=== PATIENT | male | born 1955 | race Caucasian/White ===

== ENCOUNTER 2019-08-31 01:16 | Emergency (ER) | payer BC, OTHER ==
[~2019-08-31] VITALS: Ht 188 cm; Wt 122.7 kg
[2019-08-31 01:54] LABS: BASO # 0.1 x10^3/uL (0.0-0.2); BASO % 1 % (0-3); EOS # 0.4 x10^3/uL (0.0-0.7); EOS % 3 % (0-3); HEMATOCRIT 46.3 % (39.0-53.0); HEMOGLOBIN 15.5 g/dL (13.0-17.5); LYMPH # 3.3 x10^3/uL (1.0-4.8); LYMPH % 31 % (24-48); MEAN CORPUSCULAR HEMOGLOBIN 29 pg (25-35); MEAN CORPUSCULAR HGB CONC 34 g/dL (31-37); MEAN CORPUSCULAR VOLUME 86 fL (79-100); MONO # 0.9 x10^3/uL (0.0-1.1); MONO % 9 % (0-9); NEUT % 56 % (31-73); PLATELET COUNT 241 x10^3/uL (140-400); RED BLOOD COUNT 5.36 x10^6/uL (4.30-5.70); RED CELL DISTRIBUTION WIDTH 15.3 % (11.5-14.5); WHITE BLOOD COUNT 10.7 x10^3/uL (4.0-11.0)
[2019-08-31 01:58] LABS: CREATININE 1.1 mg/dL (0.7-1.3); GFR 67.4
--- NOTE | 2019-08-31 01:58 | PHYS DOC ---
Past History Past Medical History: CAD, Diabetes, High Cholesterol, Hypothyroid, Other Additional Past Medical Histor: low back pain, rt hernia Past Surgical History: Other Additional Past Surgical Histo: cervical spine fusion c2-c7, spinal stimulators x 2 Smoking: Non-smoker Alcohol Use: Occasionally Drug Use: None General Adult EDM: Chief Complaint: DIZZY/LIGHT HEADED HPI: HPI: 63-year-old male presents with report of "my world is spinning "that is been ongoing for the past 4 days. Denies any fever or chills. Denies trauma. Patient does report some chest "tightness ". Patient reports concern that his O2 sat had dropped into the high 80%s while at home. Patient does report history of vertigo. Reports has not been prescribed any medication in the past. Patient reports symptoms have been worsening. Reports his spouse therefore had patient come to the emergency department for further evaluation. Review of Systems: Review of Systems: Constitutional: Denies fever or chills Eyes: Denies redness or eye pain HENT: Denies nasal congestion or sore throat Respiratory: Denies cough or shortness of breath Cardiovascular: Reports chest "tightness "; denies palpitations GI: Denies abdominal pain, nausea, or vomiting : Denies dysuria or hematuria Musculoskeletal: Denies back pain or joint pain Integument: Denies rash or skin lesions Neurologic: Denies headache, focal weakness or sensory changes; reports room spinning sensation Complete systems were reviewed and found to be within normal limits, except as documented in this note. Heart Score: HEART Score for Chest Pain: HEART Score for Chest Pain Response (Comments) Value History Slighlty/Non-Suspicious 0 ECG Normal 0 Age >45 - < 65 1 Risk Factors >3 Risk Factors or Hx CAD 2 Troponin < Normal Limit 0 Total 3 Risk Factors: Risk Factors: DM, Current or recent (<one month) smoker, HTN, HLP, family history of CAD, obesity. Risk Scores: Score 0 - 3: 2.5% MACE over next 6 weeks - Discharge Home Score 4 - 6: 20.3% MACE over next 6 weeks - Admit for Clinical Observation Score 7 - 10: 72.7% MACE over next 6 weeks - Early Invasive Strategies Current Medications: Current Meds: Current Medications Medications (Trade) Dose Ordered Sig/Craig Start Time Stop Time Status Last Admin Dose Admin Meclizine HCl (Antivert) 25 mg 1X ONCE 6/25/20 01:45 08/31/19 01:46 UNV Sodium Chloride 1,000 ml @ 1,000 mls/hr 1X ONCE 08/31/19 01:45 08/31/19 02:44 UNV Allergies: Allergies: Allergies Coded Allergies Type Severity Reaction Last Updated Verified No Known Drug Allergies 08/31/19 No Physical Exam: PE: Constitutional: Well developed, well nourished, no acute distress, non-toxic appearance, obese HENT: Normocephalic, atraumatic, TMs clear bilaterally Eyes: PERRL, EOMI, conjunctiva normal, no discharge, no nystagmus Neck: Normal range of motion, no tenderness, supple Lungs & Thorax: No respiratory distress, equal chest rise and fall Abdomen: Soft, no tenderness Skin: Warm, dry, no erythema, no rash Back: No tenderness, no CVA tenderness Extremities: No tenderness, ROM intact, 1+ bilateral lower extremity edema Neurologic: Alert and oriented X 3, normal motor function, normal sensory function, no focal deficits noted, cerebellar function intact Psychologic: Affect normal, judgment normal Current Patient Data: Labs: Laboratory Tests Test 08/31/19 01:28 Glucose (Fingerstick) 123 mg/dL (70-99) H Vital Signs: Vital Signs Date Time Temp Pulse Resp B/P (MAP) Pulse Ox O2 Delivery O2 Flow Rate FiO2 08/31/19 01:16 98.2 65 58 164/69 (100) 93 Room Air EKG: EKG: @0121 NSR at 65bpm, NO ST elevation, QRS 104ms, QT/QTc 412/434ms Radiology/Procedures: Radiology/Procedures: PROCEDURE: CT HEAD WO CONTRAST CT HEAD INDICATION: Dizziness COMPARISON: None Available. Exposure: One or more of the following individualized dose reduction techniques were utilized for this examination: 1. Automated exposure control 2. Adjustment of the mA and/or kV according to patient size 3. Use of iterative reconstruction technique TECHNIQUE: 5 mm contiguous axial images were obtained from the skull base to the vertex in both bone and soft tissue algorithm. FINDINGS: Mild bilateral periventricular white matter hypodensities likely chronic small vessel ischemic disease. No evidence of acute intracranial hemorrhage. No extra-axial fluid collections. No mass effect or midline shift. Ventricular size is appropriate. Basal cisterns are patent. No fractures identified.Harrington-white differentiation is preserved.Globes and orbits are within normal limits. Paranasal sinuses and mastoid air cells are clear. IMPRESSION: No acute intracranial findings. Electronically signed by: Dalton Velarde MD (08/31/2019 2:23 AM) [id number] PROCEDURE: CHEST PA & LATERAL Chest, PA and Lateral: Technique: PA and lateral views of the chest were obtained. History: Dizziness. Comparison: 06/27/2009. Findings: The heart and pulmonary vasculature appear within normal limits. Mild bibasilar lung airspace opacities likely atelectasis or infiltrates.. The pleural margins are clear. Impression: Mild bibasilar lung airspace opacities likely atelectasis or infiltrates.. Electronically signed by: Dalton Velarde MD (08/31/2019 2:39 AM) [id number] Course & Med Decision Making: Course & Med Decision Making Pertinent Labs and Imaging studies reviewed. (See chart for details) Patient presents with HPI and physical exam concerning for vertigo. Patient neurologically intact. NIHSS 0. Patient also reports some chest discomfort. EKG stable. Labs obtained and posted to chart. Troponin within normal limits. CT head without acute process. Symptomatic treatment provided with interval improvement of symptoms. Patient stable for discharge with outpatient follow-up with PCP. Discussed findings and plan with patient, who acknowledges understanding and agreement. Flori Disclaimer: Flori Disclaimer: This electronic medical record was generated, in whole or in part, using a voice recognition dictation system. Departure Departure: Impression: Primary Impression: Vertigo Disposition: 01 HOME/RESIDENCE PRIOR TO ADM Condition: STABLE Referrals: ALY MARS MD (PCP) Patient Instructions: Vertigo, [id number] Scripts Meclizine Hcl (MECLIZINE HCL) 25 Mg Tablet 1 TAB PO PRN TID PRN for DIZZINESS, #20 TAB Prov: CHRISTINA MOLINA Lance DO 08/31/19 Justification of Admission: Justification of Admission: Justification of Admission Dx: N/A NIHSS - ED NIH Stroke Scale: NIH Stroke Scale Response (Comments) Value Level of Consciousness: 0 Alert/Responsive 0 LOC Questions: 0 Answers both correctly 0 LOC Commands: 0 Performs both tasks 0 Best Gaze: 0 Normal 0 Visual: 0 No visual loss 0 Facial Palsy: 0 Normal, symmetrical 0 Motor - Left Arm 0 No drift 0 Motor - Right Arm 0 No drift 0 Motor - Left Leg 0 No drift 0 Motor: Right Leg 0 No drift 0 Limb Ataxia: 0 Absent 0 Sensory: 0 No loss 0 Best Language: 0 Normal 0 Dysathria: 0 Normal 0 Extinction and Inattention: 0 Normal 0 Total 0 MOLINA,CHRISTINA Baugh 25, 2020 01:58
[2019-08-31] MEDS ORDERED: MECLIZINE 12.5 MG TABLET. PO ONE (02:00)
[2019-08-31] MEDS ORDERED: IV NORMAL SALINE 1,000ML 1,000 ML IV ONE (02:00)
[2019-08-31 02:04] LABS: ALBUMIN 3.7 g/dL (3.4-5.0); TOTAL BILIRUBIN 0.4 mg/dL (0.2-1.0); TOTAL PROTEIN 7.4 g/dL (6.4-8.2)
[2019-08-31 02:26] LABS: MAGNESIUM 2.2 mg/dL (1.8-2.4)
--- NOTE | 2019-08-31 02:26 | RAD ---
CT HEAD INDICATION: Dizziness COMPARISON: None Available. Exposure: One or more of the following individualized dose reduction techniques were utilized for this examination: 1. Automated exposure control 2. Adjustment of the mA and/or kV according to patient size 3. Use of iterative reconstruction technique TECHNIQUE: 5 mm contiguous axial images were obtained from the skull base to the vertex in both bone and soft tissue algorithm. FINDINGS: Mild bilateral periventricular white matter hypodensities likely chronic small vessel ischemic disease. No evidence of acute intracranial hemorrhage. No extra-axial fluid collections. No mass effect or midline shift. Ventricular size is appropriate. Basal cisterns are patent. No fractures identified.Harrington-white differentiation is preserved.Globes and orbits are within normal limits. Paranasal sinuses and mastoid air cells are clear. IMPRESSION: No acute intracranial findings. Electronically signed by: Dalton Velarde MD (08/31/2019 2:23 AM) [id number]
--- NOTE | 2019-08-31 02:42 | RAD ---
Chest, PA and Lateral: Technique: PA and lateral views of the chest were obtained. History: Dizziness. Comparison: 06/27/2009. Findings: The heart and pulmonary vasculature appear within normal limits. Mild bibasilar lung airspace opacities likely atelectasis or infiltrates.. The pleural margins are clear. Impression: Mild bibasilar lung airspace opacities likely atelectasis or infiltrates.. Electronically signed by: Dalton Velarde MD (08/31/2019 2:39 AM) [id number]
[2019-08-31] MEDS ORDERED: MECL-75 PO (03:10)
[2019-08-31 03:25] VITALS: BP 147/86
--- NOTE | 2019-08-31 14:47 | EKG ---
[address] [address] Test Date: 2019-08-31 Test Time: 01:21:25 Pat Name: MARIO MASON Department: Room: Gender: M Grubber: : 1955 Requested By: CHRISTINA MOLINA Order Number: [id number] Reading MD: Measurements Intervals [place] Rate: 65 P: 5 OK: 208 QRS: 23 QRSD: 104 T: 26 QT: 412 QTc: 434 Interpretive Statements SINUS RHYTHM NO SPECIFIC ECG ABNORMALITIES RI6.02 No previous ECG available for comparison
== END 2019-08-31 03:13 | disposition home or self-care (01) ==
LOC: ER 01:16
DX: R42 Dizziness and giddiness (principal); R07.89 Other chest pain; E78.00 Pure hypercholesterolemia, unspecified; E11.9 Type 2 diabetes mellitus without complications; E03.9 Hypothyroidism, unspecified; I25.10 Atherosclerotic heart disease of native coronary artery without angina pectoris; Z98.890 Other specified postprocedural states
CPT/HCPCS: 36415; 70450; 71046; 80053; 82553; 82947; 83735; 83880; 84484; 85025; 85610; 85730; 93005; 96360; 99285; J7030; J8597

== ENCOUNTER 2020-04-04 14:39 | Emergency (ER) | payer MEDICARE, BC, OTHER ==
[~2020-04-04] VITALS: Ht 188 cm; Wt 122.7 kg
[~2020-04-04 14:39] MED LIST: MECL-75 PO
[2020-04-04] MEDS ORDERED: MORPHINE SULFATE 10 MG/ML SYRINGE. IM ONE (15:00)
--- NOTE | 2020-04-04 15:56 | RAD ---
EXAM: Head CT without contrast; cervical spine CT without contrast; lumbar spine CT without contrast. HISTORY: Fall. TECHNIQUE: Computed tomographic images of the head, cervical spine and lumbar spine were obtained wit hout contrast. *One or more of the following individualized dose reduction techniques were utilized for this examina tion: 1. Automated exposure control. 2. Adjustment of the mA and/or kV according to patient size. 3. Use of iterative reconstruction technique. COMPARISON: 06/05/2019. FINDINGS: Head: There is no acute intracranial hemorrhage. There is no mass effect or midline shift. There is n o hydrocephalus. There is cerebral volume loss. There are areas of decreased attenuation within the c erebral white matter, likely due to chronic small vessel disease. There is no calvarial lesion. There is evidence of lens surgery. There are tiny maxillary sinus mucous retention cyst. The mastoid air c ells are clear. There are maxillary antrostomy/uncinectomy changes. Cervical spine: There is instrumented anterior spinal fusion and interbody fusion at C5-C7. There is degenerative endplate remodeling with disc space narrowing and spurring primarily at C4-C5. There are dorsal column stimulator leads terminate within the dorsal aspect of the cervical central canal at C 3. There is multilevel facet arthropathy. At C2-C3, there is endplate remodeling. There is mild bilateral facet arthropathy. There is no stenos is. At C3-C4, there is a disc bulge and endplate remodeling. There is moderate right and mild left facet arthropathy. There is right greater than left uncovertebral arthropathy. There is moderate to severe right and mild left foraminal stenosis. At C4-C5, there is a right posterior lateral disc osteophyte complex superimposed on a disc bulge and endplate osteophytosis. There is mild bilateral facet arthropathy. There is bilateral uncovertebral therapy. There is mild left foraminal stenosis. At C5-C6, there is a disc bulge and endplate osteophytosis. There is uncovertebral arthropathy. There is moderate right and mild left foraminal stenosis. At C6-C7, there is a disc bulge and endplate osteophytosis. There is mild left facet arthropathy. The re is uncovertebral arthropathy. There is [id number] right and moderate to severe left foramina l stenosis. Lumbar spine: There is a transitional lumbosacral segment. This considered a partially sacralized L5 segment for this dictation. Based on this numbering system, there are hypoplastic T12 ribs. There is minimal lumbar scoliosis. There is lumbar hyperlordosis. There is grade 1 anterolisthesis of L4 on L5 , measuring 3 mm. There is grade 1 anterolisthesis of L5 on S1, measuring abdomen. Mild acute xiomara zach fracture of T12. There is multilevel endplate remodeling. There is a minimal chronic superior en dplate depression with Schmorl's node at L2. There is degenerative subchondral sclerosis and vacuum phenomenon involving the sacroiliac joints. Th ere are few benign bone islands. There are few osseous hemangiomas. At T12-L1, there is a disc bulge. There is mild right facet arthropathy. There is mild lateral forami nal stenosis. At L1-L2, there is a disc bulge and endplate remodeling. There is mild bilateral facet arthropathy. T here is mild bilateral foraminal stenosis. L2-L3, there is a disc bulge and endplate remodeling. There is mild bilateral facet arthropathy. Ther e is mild bilateral foraminal stenosis. At L3-L4, there is a disc bulge and endplate remodeling. There is mild bilateral facet arthropathy. T here is moderate right and mild left foraminal stenosis. At L4-L5, there is a disc bulge and endplate remodeling. There is severe bilateral facet arthropathy. There is grade 1 anterolisthesis. There is moderate bilateral foraminal stenosis. At L5-S1, there is a disc bulge and endplate osteophytosis. There is severe right greater than left f acet arthropathy. There is grade 1 anterolisthesis. There is severe right and mild left foraminal david nosis. There is mild central canal stenosis. IMPRESSION: 1. No acute intracranial finding. There are bilateral cerebral white matter changes due to chronic sm all vessel disease and there is cerebral volume loss. 2. No evidence of acute cervical spine trauma. There are degenerative changes throughout the cervical spine, resulting in stenosis as described above. There is also instrumented fusion at C5-C7. 3. Mild acute compression fracture of T12. This is based on a vertebral numbering system identifying a transitional lumbosacral segment as L5 rather than L6. 4. Multilevel degenerative change throughout the lumbar spine, resulting in stenosis as described abo ve. Electronically signed by: Aranza Tucker MD (04/04/2020 3:54 PM) [email or web address]
--- NOTE | 2020-04-04 16:16 | PHYS DOC ---
Past History Past Medical History: CAD, Diabetes, High Cholesterol, Hypothyroid, Other Additional Past Medical Histor: low back pain, rt hernia, neuropathy (MERARY KERR APRN) Past Surgical History: Other Additional Past Surgical Histo: cervical spine fusion c2-c7, spinal stimulators x 2 (MERARY KERR APRN) Smoking: Non-smoker Alcohol Use: Occasionally Drug Use: None (MERARY KERR APRN) General Adult EDM: Chief Complaint: MECHANICAL FALL HPI: HPI: Patient is a 64-year-old male, accompanied by his daughter, who presents to the emergency room for evaluation of low back pain and a possible loss of consciousness after suffering 2 falls today. Patient reports the first fall was down 4 steps at home. Patient is unsure why he fell he does report a history of neuropathy in both of his feet. Patient reports that later in the day he fell down the same steps but this time he fell down 5 steps, the patient's daughter reports that the patient seemed dazed and that there may have been a loss of consciousness less than a minute associated with the second fall. Patient reports that he had lumbar laminectomy and fusion a week and a half ago by Dr. Hoskins. He denies any decreased sensation, loss of bowel/bladder control, wea kness, or saddle anesthesia. He currently rates his pain a 10 out of 10 on the pain scale, he denies any alleviating factors. (MERARY KERR APRN) Review of Systems: Review of Systems: Complete ROS is negative unless otherwise noted in HPI. (MERARY KERR APRN) Current Medications: Current Meds: Current Medications Medications (Trade) Dose Ordered Sig/Craig Start Time Stop Time Status Last Admin Dose Admin Morphine Sulfate (Morphine 10mg Syringe) 6 mg 1X ONCE 04/04/20 15:00 04/04/20 15:08 DC (MERARY KERR APRN) Allergies: Allergies: Allergies Coded Allergies Type Severity Reaction Last Updated Verified No Known Drug Allergies 08/31/19 No (MERARY KERR APRN) Physical Exam: PE: See Above Constitutional: Well developed, well nourished, no acute distress, non-toxic appearance. [] HENT: Normocephalic, atraumatic, bilateral external ears normal, nose normal. [] Eyes: PERRLA, EOMI, conjunctiva normal, no discharge. [] Neck: Normal range of motion, supple, no bony tenderness, no obvious deformity, no step-off no stridor. [] Cardiovascular:Heart rate regular rhythm Lungs & Thorax: Respirations even and unlabored, no retractions, no respiratory distress Back: Lower thoracic spine tenderness to palpation without crepitus, step-off, or obvious deformity, diffuse lumbar tenderness to palpation with out crepitus, step-off, or obvious deformity Skin: Warm, dry, no erythema, no rash;healing lumbar incision surgical wound, Steri-Strips in place, no purulent drainage or bleeding, no warmth, [] Extremities: No cyanosis, ROM intact, no edema. [] Neurologic: Alert and oriented X 3, motor intact, decreased sensation of bilateral lower extremities history of neuropathy, no focal deficits noted. [] Psychologic: Affect normal, judgement normal, mood normal. [] (MERARY KERR APRN) Current Patient Data: Vital Signs: Vital Signs Date Time Temp Pulse Resp B/P (MAP) Pulse Ox O2 Delivery O2 Flow Rate FiO2 04/04/20 14:45 98.1 78 16 143/67 (92) 96 Room Air (MERARY KERR APRN) EKG: EKG: [] (MERARY KERR APRN) Radiology/Procedures: Radiology/Procedures: PROCEDURE: CT LUMBAR SPINE WO CONTRAST EXAM: Head CT without contrast; cervical spine CT without contrast; lumbar spine CT without contrast. HISTORY: Fall. TECHNIQUE: Computed tomographic images of the head, cervical spine and lumbar spine were obtained without contrast. *One or more of the following individualized dose reduction techniques were utilized for this examination: 1. Automated exposure control. 2. Adjustment of the mA and/or kV according to patient size. 3. Use of iterative reconstruction technique. COMPARISON: 06/05/2019. FINDINGS: Head: There is no acute intracranial hemorrhage. There is no mass effect or midline shift. There is no hydrocephalus. There is cerebral volume loss. There are areas of decreased attenuation within the cerebral white matter, likely due to chronic small vessel disease. There is no calvarial lesion. There is evidence of lens surgery. There are tiny maxillary sinus mucous retention cyst. The mastoid air cells are clear. There are maxillary antrostomy/uncinectomy changes. Cervical spine: There is instrumented anterior spinal fusion and interbody fusion at C5-C7. There is degenerative endplate remodeling with disc space narrowing and spurring primarily at C4-C5. There are dorsal column stimulator leads terminate within the dorsal aspect of the cervical central canal at C3. There is multilevel facet arthropathy. At C2-C3, there is endplate remodeling. There is mild bilateral facet arthropathy. There is no stenosis. At C3-C4, there is a disc bulge and endplate remodeling. There is moderate right and mild left facet arthropathy. There is right greater than left uncovertebral arthropathy. There is moderate to severe right and mild left foraminal stenosis. At C4-C5, there is a right posterior lateral disc osteophyte complex superimposed on a disc bulge and endplate osteophytosis. There is mild bilateral facet arthropathy. There is bilateral uncovertebral therapy. There is mild left foraminal stenosis. At C5-C6, there is a disc bulge and endplate osteophytosis. There is uncovertebral arthropathy. There is moderate right and mild left foraminal stenosis. At C6-C7, there is a disc bulge and endplate osteophytosis. There is mild left facet arthropathy. There is uncovertebral arthropathy. There is [id number] right and moderate to severe left foraminal stenosis. Lumbar spine: There is a transitional lumbosacral segment. This considered a partially sacralized L5 segment for this dictation. Based on this numbering system, there are hypoplastic T12 ribs. There is minimal lumbar scoliosis. There is lumbar hyperlordosis. There is grade 1 anterolisthesis of L4 on L5, measuring 3 mm. There is grade 1 anterolisthesis of L5 on S1, measuring abdomen. Mild acute compression fracture of T12. There is multilevel endplate remodeling. There is a minimal chronic superior endplate depression with Schmorl's node at L2. There is degenerative subchondral sclerosis and vacuum phenomenon involving the sacroiliac joints. There are few benign bone islands. There are few osseous hemangiomas. At T12-L1, there is a disc bulge. There is mild right facet arthropathy. There is mild lateral foraminal stenosis. At L1-L2, there is a disc bulge and endplate remodeling. There is mild bilateral facet arthropathy. There is mild bilateral foraminal stenosis. L2-L3, there is a disc bulge and endplate remodeling. There is mild bilateral facet arthropathy. There is mild bilateral foraminal stenosis. At L3-L4, there is a disc bulge and endplate remodeling. There is mild bilateral facet arthropathy. There is moderate right and mild left foraminal stenosis. At L4-L5, there is a disc bulge and endplate remodeling. There is severe bilateral facet arthropathy. There is grade 1 anterolisthesis. There is moderate bilateral foraminal stenosis. At L5-S1, there is a disc bulge and endplate osteophytosis. There is severe right greater than left facet arthropathy. There is grade 1 anterolisthesis. There is severe right and mild left foraminal stenosis. There is mild central canal stenosis. IMPRESSION: 1. No acute intracranial finding. There are bilateral cerebral white matter changes due to chronic small vessel disease and there is cerebral volume loss. 2. No evidence of acute cervical spine trauma. There are degenerative changes throughout the cervical spine, resulting in stenosis as described above. There is also instrumented fusion at C5-C7. 3. Mild acute compression fracture of T12. This is based on a vertebral numbering system identifying a transitional lumbosacral segment as L5 rather than L6. 4. Multilevel degenerative change throughout the lumbar spine, resulting in stenosis as described above. PROCEDURE: CT THORACIC SPINE WO CONTRAST CT thoracic spine without contrast History: Reason: T12 acute compression fx after 2 falls today / Spl. Instructions: / History: Axial helical images of the thoracic spine were obtained without contrast. Axial, coronal and sagittal reconstruction was performed. Findings: The vertebral bodies are aligned. There is transitional vertebral bodies. What is felt be T12 has hypoplastic ribs. There is also bilateral C7 ribs. There is buckling of the anterior cortex of T12 with minimal loss of stature and with slight impaction of superior endplate. There is prior anterior fusion of C5-C7. There is a dorsal column stimulator. Evaluation of the central canal is limited without contrast. There is no evidence of significant central or neuroforaminal stenosis. Impression: T12 vertebral compression fracture with minimal loss of stature. End impression [] (MERARY KERR APRN) Heart Score: Risk Factors: Risk Factors: DM, Current or recent (<one month) smoker, HTN, HLP, family history of CAD, obesity. Risk Scores: Score 0 - 3: 2.5% MACE over next 6 weeks - Discharge Home Score 4 - 6: 20.3% MACE over next 6 weeks - Admit for Clinical Observation Score 7 - 10: 72.7% MACE over next 6 weeks - Early Invasive Strategies (MERARY KERR APRN) Course & Med Decision Making: Course & Med Decision Making Pertinent Labs and Imaging studies reviewed. (See chart for details) 170-I spoke with Maria Isabel NICOLAS who is corporate receptionist for the patient's neurosurgeons office. Advised BOX OFFICE ATTENDANT of new T12 compression fracture, otherwise there are no acute findings on CT of the head, C-spine, or L-spine. A Complete T-spine CT has been ordered. She will have Dr. Hoskins reviewed the patient's scans. 1849-patient states he would like to go home, he has an appointment tomorrow morning with Dr. Hoskins. Encouraged patient to take his previous pain medication as prescribed, return to the ER if any symptoms worsen. (MERARY KERR APRN) Dragon Disclaimer: Dragon Disclaimer: This electronic medical record was generated, in whole or in part, using a voice recognition dictation system. (MERARY KERR APRN) Departure Departure: Impression: Primary Impression: T12 compression fracture Qualified Codes: S22.080A - Wedge compression fracture of t11-T12 vertebra, initial encounter for closed fracture Disposition: 01 DC HOME SELF CARE/HOMELESS Condition: STABLE Referrals: ALY MARS MD (PCP) Patient Instructions: Back, Compression Fracture Additional Instructions: Continue taking your home pain medications. Follow up with Dr. Hoskins tomorrow as planned. Return to the ER if symptoms worsen. Attending Signature Attending Signature I have reviewed the PA/BOX OFFICE ATTENDANT's note and plan of care. I was available for consultation as needed during the patient's visit in the emergency department. I agree with the clinical impression, plan, and disposition. (CHRISTINA MOLINA DO) MERARY KERR APRN Apr 04, 2020 16:16 CHRISTINA MOLINA DO Apr 04, 2020 23:11
[2020-04-04] MEDS ORDERED: oxyCODONE/APAP 7.5/325 1 TAB TABLET PO ONE (16:45)
[2020-04-04] MEDS ORDERED: ORPHENADRINE CITRATE 60 MG/2 ML VIAL. IM ONE (16:45)
--- NOTE | 2020-04-04 18:06 | RAD ---
CT thoracic spine without contrast History: Reason: T12 acute compression fx after 2 falls today / Spl. Instructions: / History: Axial helical images of the thoracic spine were obtained without contrast. Axial, coronal and sagitta l reconstruction was performed. Findings: The vertebral bodies are aligned. There is transitional vertebral bodies. What is felt be T12 has hyp oplastic ribs. There is also bilateral C7 ribs. There is buckling of the anterior cortex of T12 with minimal loss of stature and with slight impaction of superior endplate. There is prior anterior fusio n of C5-C7. There is a dorsal column stimulator. Evaluation of the central canal is limited without contrast. There is no evidence of significant cent ral or neuroforaminal stenosis. Impression: T12 vertebral compression fracture with minimal loss of stature. End impression PQRS Compliance Statement: One or more of the following individualized dose reduction techniques were utilized for this examinat ion: 1. Automated exposure control 2. Adjustment of the mA and/or kV according to patient size 3. Use of iterative reconstruction technique Electronically signed by: Derek Yee III, MD (04/04/2020 6:04 PM) [facility]
[2020-04-04 19:08] VITALS: BP 152/80
== END 2020-04-04 19:08 | disposition home or self-care (01) ==
LOC: ER 14:39
DX: S22.080A Wedge compression fracture of T11-T12 vertebra, initial encounter for closed fracture (principal); R51.9 Headache, unspecified; I25.10 Atherosclerotic heart disease of native coronary artery without angina pectoris; E11.40 Type 2 diabetes mellitus with diabetic neuropathy, unspecified; E78.00 Pure hypercholesterolemia, unspecified; E03.9 Hypothyroidism, unspecified; W10.8XXA Fall (on) (from) other stairs and steps, initial encounter; Y93.89 Activity, other specified; Y92.89 Other specified places as the place of occurrence of the external cause; Y99.8 Other external cause status
CPT/HCPCS: 70450; 72125; 72128; 72131; 96372; 99285; J2270; J2360

== ENCOUNTER → 2020-05-21 | Outpatient (CLI) | payer MEDICARE, BC, OTHER ==
--- NOTE | 2020-05-21 16:22 | RAD ---
EXAM: Right hip, 2 views. HISTORY: Pain. COMPARISON: None. FINDINGS: 2 views of the right hip are obtained. There is no fracture, dislocation or subluxation. Th ere is degenerative change at the visualized lower lumbar levels. IMPRESSION: No acute osseous finding. Electronically signed by: Aranza Tucker MD (05/21/2020 4:19 PM) [id number]
== END ==
LOC: DXRAD 13:34
PROVIDERS: ATTEND Neurological Surgery
DX: M25.551 Pain in right hip (principal)
CPT/HCPCS: 73502

== ENCOUNTER 2020-12-29 12:08 | Emergency (ER) | payer MEDICARE, BC, OTHER ==
[~2020-12-29] VITALS: Ht 188 cm; Wt 122.7 kg
--- NOTE | 2020-12-29 12:48 | PHYS DOC ---
Past History Past Medical History: CAD, Diabetes, High Cholesterol, Hypothyroid, Other Additional Past Medical Histor: low back pain, rt hernia, neuropathy Past Surgical History: Other Additional Past Surgical Histo: cervical spine fusion c2-c7, spinal stimulators x 2 Smoking: Non-smoker Alcohol Use: Occasionally Drug Use: None General Adult EDM: Chief Complaint: KNEE INJURY HPI: HPI: Patient is a 65-year-old male that presents today with left knee pain. Patient states that he woke up on Wednesday morning at 3 AM on the floor of his bedroom with his knee tucked underneath him. Patient reports he is unable to say how he found himself on the floor but it happens "a lot". Patient states that since March 2020 he has had 4 back surgeries for various spinal issues, and since that time he has had increased weakness in his legs and he has a neurology appointment on January 03 for neurology evaluation of this. Patient states that when he is walking he says he feels a crunching sensation in his knee, he is able to straighten the leg out with some difficulty due to pain. Patient does take chronic opioids for his back pain including hydromorphone and hydrocodone at home. Review of Systems: Review of Systems: Constitutional: Denies fever or chills Eyes: Denies change in visual acuity HENT: Denies nasal congestion or sore throat Respiratory: Denies cough or shortness of breath Cardiovascular: Denies chest pain or edema GI: Denies abdominal pain, nausea, vomiting, bloody stools or diarrhea : Denies dysuria Musculoskeletal: left knee joint pain, Integument: Denies rash Neurologic: Denies headache, focal weakness or sensory changes Endocrine: Denies polyuria or polydipsia Lymphatic: Denies swollen glands Psychiatric: Denies depression or anxiety Allergies: Allergies: Allergies Coded Allergies Type Severity Reaction Last Updated Verified No Known Drug Allergies 08/31/19 No Physical Exam: PE: Constitutional: Well developed, well nourished, no acute distress, non-toxic appearance. [] HENT: Normocephalic, atraumatic, bilateral external ears normal, oropharynx m oist, no oral exudates, nose normal. [] Eyes: PERRLA, EOMI, conjunctiva normal, no discharge. [] Neck: Normal range of motion, no tenderness, supple, no stridor. [] Cardiovascular:Heart rate regular rhythm, no murmur [] Lungs & Thorax: Bilateral breath sounds clear to auscultation [] Abdomen: Bowel sounds normal, soft, no tenderness, no masses, no pulsatile masses. [] Skin: Warm, dry, no erythema, no rash. [] Back: No tenderness, no CVA tenderness. [] Extremities: Left knee is swollen, tenderness with palpation noted, with active range of motion patient has pain, no bruising or ecchymosis noted Neurologic: Alert and oriented X 3, normal motor function, normal sensory function, no focal deficits noted. [] Psychologic: Affect normal, judgement normal, mood normal. [] Current Patient Data: Vital Signs: Vital Signs Date Time Temp Pulse Resp B/P (MAP) Pulse Ox O2 Delivery O2 Flow Rate FiO2 12/29/20 13:30 97.8 84 16 136/75 (95) 96 Room Air 12/29/20 12:08 97.8 86 18 152/80 (104) 96 Room Air EKG: EKG: [] Radiology/Procedures: Radiology/Procedures: [REASON: fall with knee pain PROCEDURE: KNEE LEFT 4V XR KNEE _4 VIEWS WITH PATELLA_LT Clinical indications: Reason: fall with knee pain / Spl. Instructions: / History: Findings: No acute fracture or dislocation or osteolytic process is evident. There is mild degenerative joint space narrowing and spurring of the medial tibiofemoral joint compartment. Mild degenerative joint space narrowing without spurring of the lateral tibial femoral joint compartment is seen. The patella is normally aligned. There is mild degenerative spurring of the patellofemoral joint compartment without joint space narrowing. There is an accessory ossicle of the anterior tibial tubercle which may be due to old Kacie-Schlatter's disease or developmental variant. Small left knee joint effusion is seen. IMPRESSION: No acute osseous abnormality is evident. Small left knee joint effusion. Electronically signed by: Lemuel Andersen MD (12/29/2020 1:07 PM) [id number]] Heart Score: C/O Chest Pain: N/A Course & Med Decision Making: Course & Med Decision Making Pertinent Labs and Imaging studies reviewed. (See chart for details) Imaging results reviewed with patient and . Due to patient's ambulation issues, I will place patient in Hero wrap. Patient also has a walker wheelchair already and he will continue to use that. Patient instructed to ice 4-5 times daily 20 minutes at a time, patient has home pain medications that he will take for pain. Patient follows Dr. Singh, orthopedic surgeon at the [facility] and states they will call their office in the morning for a follow-up appointment with them [] Flori Disclaimer: Dragon Disclaimer: This electronic medical record was generated, in whole or in part, using a voice recognition dictation system. Departure Departure: Impression: Primary Impression: Knee effusion, left Additional Impression: Knee injury Qualified Codes: S89.92XA - Unspecified injury of left lower leg, initial encounter Disposition: HOME / SELF CARE / HOMELESS Condition: STABLE Referrals: ALY MARS MD (PCP) Patient Instructions: Knee Effusion, Knee Pain Additional Instructions: Hero wrap to knee for comfort Ice 20 minutes at a time 5-6 times daily, keep knee elevated as much as possible Follow-up with Dr. Singh at the [facility] for further evaluation of your knee. Return to the emergency department if left knee becomes red, increased swelling, increased pain, fever or chills as noted. Take home pain medications for pain control [facility] RN Dec 29, 2020 12:48
--- NOTE | 2020-12-29 13:09 | RAD ---
XR KNEE _4 VIEWS WITH PATELLA_LT Clinical indications: Reason: fall with knee pain / Spl. Instructions: / History: Findings: No acute fracture or dislocation or osteolytic process is evident. There is mild degenerat miguel joint space narrowing and spurring of the medial tibiofemoral joint compartment. Mild degenerativ e joint space narrowing without spurring of the lateral tibial femoral joint compartment is seen. The patella is normally aligned. There is mild degenerative spurring of the patellofemoral joint compart ment without joint space narrowing. There is an accessory ossicle of the anterior tibial tubercle whi ch may be due to old [place]-Schlatter's disease or developmental variant. Small left knee joint effus ion is seen. IMPRESSION: No acute osseous abnormality is evident. Small left knee joint effusion. Electronically signed by: Lemuel Andersen MD (12/29/2020 1:07 PM) [id number]
[2020-12-29 13:30] VITALS: BP 136/75
== END 2020-12-29 13:32 | disposition home or self-care (01) ==
LOC: ER 12:08
DX: S89.92XA Unspecified injury of left lower leg, initial encounter (principal); M25.462 Effusion, left knee; E11.40 Type 2 diabetes mellitus with diabetic neuropathy, unspecified; I25.10 Atherosclerotic heart disease of native coronary artery without angina pectoris; E78.00 Pure hypercholesterolemia, unspecified; E03.9 Hypothyroidism, unspecified; X50.9XXA Other and unspecified overexertion or strenuous movements or postures, initial encounter; Y93.89 Activity, other specified; Y92.89 Other specified places as the place of occurrence of the external cause; Y99.8 Other external cause status
CPT/HCPCS: 73564; 99284